=== PATIENT | male | born 1980 | race Caucasian/White ===

== ENCOUNTER 2017-12-07 16:56 | Emergency (ER) | payer OTHER, MEDICAID ==
[~2017-12-07] VITALS: Ht 180.3 cm; Wt 109.0 kg
[2017-12-07 17:47] VITALS: BP 149/90
== END 2017-12-07 19:08 | disposition home or self-care (01) ==
LOC: ER 19:08
DX: S80.11XA Contusion of right lower leg, initial encounter (principal); Z88.0 Allergy status to penicillin; V49.60XA Unspecified car occupant injured in collision with unspecified motor vehicles in traffic accident, initial encounter; Y93.89 Activity, other specified; Y92.410 Unspecified street and highway as the place of occurrence of the external cause; Y99.8 Other external cause status
CPT/HCPCS: 73590; 99284

== ENCOUNTER 2025-07-21 15:30 | Emergency (ER) | payer MEDICARE, MEDICAID ==
[~2025-07-21] VITALS: Ht 180.3 cm; Wt 112.8 kg
[2025-07-21 15:39] VITALS: BP 129/87; PULSE 87; RESP 16; TEMP 98; O2SAT 97
--- NOTE | 2025-07-21 16:28 | Physician Documentation ---
History of Present Illness ~ Chief Complaint: Bite-animal Stated Complaint: SPLIT LIP Time Seen by MD: 16:15 OK to notify your PCP?: Yes Primary Medical Doctor: [facility] Source: patient Mode of Arrival: POV Exam Limitations: no limitations HPI 45-year-old male with autism and fragile X syndrome brought in by mother due to dog bite to the right side of his face that occurred just prior to arrival. Patient's dog is a Rottweiler and he was playing with the dog but mother states the patient is unaware of how to read cues and is often overly aggressive when he grabs the dog which prompted the dog to bite him. This has never happened before and they have had the dog since 6. Dog is fully immunized. Tetanus IZ administered about 13months ago per mother Tetanus within 5 years?: Yes Medication Reconciliation Allergies: Coded Allergies: Penicillins (Verified Allergy, Unknown, 07/21/25) Past Medical History Past Medical History: No Pertinent History Past Surgical History: no surgical history Lives with: Family Lives In: Home Review of Systems All Other Systems at this time: Reviewed and Negative Physical Exam Vital Signs: Temperature: 98.0, Source: Temporal, Heart Rate: 87, Respiratory Rate: 16, BP: 129/87, Pulse Oximetry: 97, Weight: 112.800 Oxygen Flow Rate: 0 Physical Exam GENERAL: Alert, no acute distress. HEENT: NCAT, EOMI, PERRL, RIGHT SIDE OF LIP VERTICAL LACERATION THROUGH AND THROUGH THAT STARTS JUST ABOVE THE VERMILION BORDER AND MEASURES ABOUT 1CM IN LENGTH. A LACERATION ON RIGHT SIDE OF CHIN THAT MEASURES 0.4CM IN WIDTH. Normal oropharynx, moist oral mucosa. NECK: Supple, trachea midline. CARDIAC: Regular rate and rhythm, no murmurs, rubs, or gallops. RESPIRATORY: Equal breath sounds, clear to auscultation bilaterally, no respiratory distress. MUSCULOSKELETAL: Normal range of motion, nontender, no swelling. Normal gait. NEUROLOGICAL: Awake, alert, and oriented x 3. SKIN: Warm/dry, no pallor, no rash. PSYCH: Alert and appropriate. Affect congruent with mood. Speech is clear. Good eye contact. Procedures Laceration/Wound Repair Laceration/Wound Repair #1: Location: right upper lip Length (cm): 1 Anesthesia: Lidocaine w/ Epi Volume Anesthetic (mls): 2 Prep: irrigated by nurse Irrigated w/ Saline (mls): 300 Debrided: minimal Undermining: none Margins: revised Foreign Body: not identified Repaired: skin Wound Repaired With: sutures Suture Size/Type: 5-0, ethilon Layer Closure?: No Splint Applied?: No Sling Applied?: No Tolerated Procedure Well?: yes, no complications Laceration/Wound Repair #2: Location: right side of chin Length (cm): 0.4 Anesthesia: Lidocaine w/ Epi Volume Anesthetic (mls): 1 Prep: irrigated by nurse Irrigated w/ Saline (mls): 300 Debrided: minimal Undermining: none Margins: revised Foreign Body: not identified Repaired: skin Wound Repaired With: sutures Suture Size/Type: 5-0, ethilon Layer Closure?: No Tolerated Procedure Well?: yes, no complications Progress Results/Orders Reviewed/noted all lab results: Yes Results/Orders Orders - BREE EWING Laceration/I&D Tray Set Up (07/21/25 16:21) Completed Orders - BREE EWING Lidocaine 1% W/Epi 1:100,000 (Xylocaine (07/21/25 16:25) Vital Signs 07/21/25 15:39 Temp 98.0 Pulse 87 Resp 16 B/P (MAP) 129/87 Pulse Ox 97 O2 Flow Rate 0 Medical Decision Making Additional information obtaine: N/A Findings N/A Differential Dx:Considerations: Include: Abrasion, Allergic reaction, Anaphylaxis, Cellulitis, Contusion, Fracture, Hematoma, Insect envenomation, Laceration, Neurovascular injury, Punture wound, Retained foreign body, Urt icaria Departure Time of Disposition: 16:28 Disposition: 01 HOME / SELF CARE / HOMELESS Impression: Primary Impression: Dog bite Qualified Codes: W54.0XXA - Bitten by dog, initial encounter Condition: Stable Discharge Instructions: Animal Bite, Adult Additional Instructions: do not get wet x 24hours sutures need to be removed in 5-7days antibiotics sent to pharmacy to decrease risk for infection due to location and depth Referrals: NO PRIMARY CARE PROVIDER (PCP) Prescriptions Doxycycline Hyclate (Doxycycline Hyclate) 100 Mg Capsule 1 CAP PO Q12H for 10 Days, #20 CAP Prov: BREE EWING 07/21/25 Education Educated: Patient Educated regarding: diagnosis, treatment, need for follow up Signature Scribe Signature: x Attestation: BREE Gonzalez Jul 21, 2025 16:28
[2025-07-21] MEDS ORDERED: DOXY-224 PO (16:36)
[2025-07-21] MEDS: LIDOcaine 1% W/epiNEPHrine 1:100,000 20ml vial IJ ONE (16:47)
== END 2025-07-21 17:47 | disposition home or self-care (01) ==
LOC: ER 15:31
DX: S01.81XA Laceration without foreign body of other part of head, initial encounter (principal); Z88.0 Allergy status to penicillin; W54.0XXA Bitten by dog, initial encounter; Y93.89 Activity, other specified; Y92.89 Other specified places as the place of occurrence of the external cause; Y99.8 Other external cause status
CPT/HCPCS: 12011; 99284; A6402; Z7610; A6449

== ENCOUNTER 2025-07-27 08:28 | Emergency (ER) | payer MEDICARE, MEDICAID ==
[~2025-07-27] VITALS: Ht 180.3 cm; Wt 110.9 kg
[~2025-07-27 08:28] MED LIST: DOXY-224 PO
[2025-07-27 08:38] VITALS: BP 118/90; PULSE 87; RESP 15; TEMP 96.3; O2SAT 97
--- NOTE | 2025-07-27 09:28 | Physician Documentation ---
History of Present Illness ~ Chief Complaint: See Chief Complaint Stated Complaint: STITCHES REMOVAL Time Seen by MD: 09:04 OK to notify your PCP?: Yes [facility] patient Mode of Arrival: POV Exam Limitations: no limitations HPI Requesting suture removal. Currently finishing his antibiotics. No signs of infection. Has sutures in place to right chin and right cheek placed on 07/21/25. Tetanus within 5 years?: Yes Medication Reconciliation Allergies: Coded Allergies: Penicillins (Verified Allergy, Unknown, 07/21/25) Scheduled Doxycycline Hyclate (Doxycycline Hyclate), 1 CAP PO Q12H Past Medical History Past Medical History: No Pertinent History Past Surgical History: no surgical history Lives with: Family Lives In: Home Review of Systems All Other Systems at this time: Reviewed and Negative Physical Exam Vital Signs: RN Vital Signs have been reviewed: Yes, Temperature: 96.3, Source: Temporal, Heart Rate: 87, Respiratory Rate: 15, BP: 118/90, Pulse Oximetry: 97, Weight: 110.900 Pulse Oximetry Reflects: adequate oxygenation Physical Exam General: Alert, no distress. HEENT: No injection, moist mucous membranes. Neck: Full range of motion. Respiratory: No respiratory distress, equal chest rise and fall. Chest: No accessory muscle use. Extremities: Normal range of motion, no deformity. Neurologic: Oriented x4. Psychiatric: Normal mood and affect. Skin: Normal color, warm and dry. Sutures in place to right cheek and right chin, no erythema or drainage from site. Progress Results/Orders Reviewed/noted all lab results: Yes Results/Orders Vital Signs 07/27/25 08:38 Temp 96.3 Pulse 87 Resp 15 B/P (MAP) 118/90 Pulse Ox 97 Medical Decision Making Additional information obtaine: old records Findings Here for suture removal. No signs of infection. Still taking his antibiotics, almost finished. Sutures removed, patient tolerated well. Differential Dx:Considerations: Include: Abscess, Cellulitis, Healing wound Departure Disposition: 01 HOME / SELF CARE / HOMELESS Impression: Primary Impression: Visit for suture removal Additional Impression: Bite wound of cheek Condition: Stable Additional Instructions: Return back here for any new or worsening symptoms. Referrals: NO PRIMARY CARE PROVIDER (PCP) Education Educated: Patient Educated regarding: diagnosis, treatment, prognosis, need for follow up Additional Comment Medical Screen Exam This patient recieved a medical screening examination. After reviewing the individual's medical complaints with presenting symptoms and performing an appropriate physical examination, it was determined that no immediate life- threatening emergency medical condition is present. This individual is also not a women having contractions. Signature Scribe Signature: . Attestation: Scribed for Aurora Mason by Aurora Warren NP . 07/27/25 09:35 Parts of this note were created using [employer] voice recognition software program. While efforts were made to correct any mistakes made by this voice recognition software program, nonsensical phrases may remain in this note. In addition, there may be errors and syntax, grammar, content and spelling. AURORA MASONP Jul 27, 2025 09:28
== END 2025-07-27 09:44 | disposition home or self-care (01) ==
LOC: ER 08:28
DX: S01.411D Laceration without foreign body of right cheek and temporomandibular area, subsequent encounter (principal); X58.XXXD Exposure to other specified factors, subsequent encounter; Z88.0 Allergy status to penicillin
CPT/HCPCS: 99282